=== PATIENT | female | born 1980 | race Two or more races ===

== ENCOUNTER 2022-11-04 19:20 | Emergency (ER) | payer OTHER, MEDICAID ==
[~2022-11-04] VITALS: Ht 170.2 cm; Wt 108.7 kg
[2022-11-04 20:23] LABS: Basophils # (auto) 0.1 10 ^3/uL (0-0.2); Basophils % (auto) 0.9 % (0.0-2.0); Eosinophils # (auto) 0.3 10 ^3/uL (0-0.8); Eosinophils % (auto) 2.8 % (0.0-7.0); Hematocrit 41.3 % (36.0-46.0); Hemoglobin 13.8 g/dL (12.2-16.2); Lymphocytes # (auto) 2.3 10 ^3/uL (0.4-5.4); Lymphocytes % (auto) 25.1 % (10.0-50.0); Mean Corpuscular Hemoglobin 27.9 pg (28.0-32.0); Mean Corpuscular Hgb Conc. 33.3 g/dL (32.0-36.0); Mean Corpuscular Volume 83.8 fL (80.0-100.0); Monocytes # (auto) 0.5 10 ^3/uL (0-1.3); Monocytes % (auto) 5.9 % (0.0-12.0); Neutrophils # (auto) 5.9 10 ^3/uL (1.6-8.6); Neutrophils % (auto) 65.3 % (37.0-80.0); Nucleated Red Blood Cells % 0.1 %; Red Blood Cells 4.94 10^6/uL (4.0-5.20); Red Cell Distribution Width 15.1 % (11.8-14.3)
[2022-11-04 20:37] LABS: Urine Bacteria NONE SEEN /hpf (None Seen); Urine Blood 3+ /uL (Negative); Urine Specific Gravity 1.016 (1.001-1.035); Urine WBC 13 /hpf (0 - 5)
[2022-11-04 20:39] LABS: Albumin 3.7 g/dL (3.4-5.0); BUN/Creatinine Ratio 17.4; Calcium 9.3 mg/dL (8.5-10.1); Potassium 3.9 mmol/L (3.5-5.1)
[2022-11-04 20:42] LABS: Bilirubin, Total 0.2 mg/dL (0.2-1.0); Total Protein 7.9 g/dL (6.4-8.2)
[2022-11-04] MEDS ORDERED: CIPROFLOXACIN HCL 500 MG TAB PO ONE (21:15)
[2022-11-04] MEDS ORDERED: CIPR-173 PO (21:17)
[2022-11-04 23:15] VITALS: BP 128/82
== END 2022-11-04 23:21 | disposition home or self-care (01) ==
LOC: ER 19:20
DX: N39.0 Urinary tract infection, site not specified (principal); Z88.0 Allergy status to penicillin
CPT/HCPCS: 36415; 74176; 80053; 81001; 82150; 83690; 85025

== ENCOUNTER → 2022-11-12 | Outpatient (CLI) | payer OTHER, MEDICAID ==
[~2022-11-12] MED LIST: CIPR-173 PO
[2022-11-12 12:28] LABS: Potassium 4.1 mmol/L (3.5-5.1)
[2022-11-12 12:36] LABS: Albumin 3.8 g/dL (3.4-5.0); BUN/Creatinine Ratio 14.1; Bilirubin, Total 0.4 mg/dL (0.2-1.0); Calcium 9.4 mg/dL (8.5-10.1); Total Protein 7.9 g/dL (6.4-8.2)
== END | disposition home or self-care (01) ==
LOC: LAB 11:40
PROVIDERS: ATTEND Internal Medicine
DX: E66.01 Morbid (severe) obesity due to excess calories (principal)
CPT/HCPCS: 36415; 80053; 80061; 83036; 84439; 84443